=== PATIENT | female | born 1975 | race Caucasian/White ===

== ENCOUNTER 2016-05-25 10:08 | Emergency (ER) | payer MEDICAID, OTHER ==
[2016-05-25] MEDS ORDERED: HYDROmorphone* 1 MG/ML 1 ML SYR IV ONE ×2 (10:30→14:05)
[2016-05-25] MEDS ORDERED: Ketorolac INJ* 30 MG/ML 1 ML VIAL IV ONE (10:30)
[2016-05-25] MEDS ORDERED: Ondansetron INJ* 2 MG/ML VIAL IV ONE (10:30)
[2016-05-25 11:03] LABS: Hematocrit 41 % (35-47); Hemoglobin 13.8 g/dl (12.0-16.0); Mean Corpuscular HGB Conc 34 g/dl (31-36); Mean Corpuscular Hemoglobin 29 pg (27-31); Mean Corpuscular Volume 87 fL (80-97); Mean Platelet Volume 8 um3 (7.4-10.4); Red Cell Distribution Width 15 % (10.5-15); White Blood Count 8.7 10^3/ul (3.5-10.8)
[2016-05-25 11:08] LABS: Add Diff/Slide Review? Slide Review Added; Comments Flag Yes
[2016-05-25 11:08] LABS: Urine Bacteria Absent (Absent); Urine Bilirubin Negative (Negative); Urine Glucose Negative (Negative); Urine Nitrite Negative (Negative)
[2016-05-25 11:17] LABS: ALT 33 U/L (7-52); AST 19 U/L (13-39); Albumin 4.4 g/dL (3.2-5.2); Alkaline Phosphatase 84 U/L (34-104); Anion Gap 11 mmol/L (2-11); BUN/Creatinine Ratio 18.7 (8-20); Blood Urea Nitrogen 14 mg/dL (6-24); CO2 Carbon Dioxide 23 mmol/L (22-32); Calcium 9.4 mg/dL (8.6-10.3); Chloride 104 mmol/L (101-111); EGFR African American 111.2 (>60); EGFR Non-African American 86.5 (>60); Globulin 2.9 g/dL (2-4); Glucose 107 mg/dL (70-100); Lipase 12 U/L (11.0-82.0); Potassium 3.2 mmol/L (3.5-5.0); Sodium 138 mmol/L (133-145); Total Protein 7.3 g/dL (6.4-8.9)
[2016-05-25] MEDS: NS 0.9% 1000 ML* 2,000 ML IV ONE (11:46)
--- NOTE | 2016-05-25 11:51 | RAD ---
CLINICAL HISTORY: Right flank pain, history of kidney stones COMPARISON: October 02, 2014 TECHNIQUE: Multiple contiguous axial CT scans were obtained of the abdomen and pelvis, without intravenous contrast enhancement. Coronal and sagittal multiplanar reformations are submitted for review. Oral contrast was not administered. FINDINGS: The study is limited by the lack of intravenous contrast. This limits evaluation of the solid organs and vasculature. LUNG BASES: The lung bases are clear. LIVER: The liver is normal in shape, size, contour, and attenuation. BILE DUCTS: There is no intrahepatic or extrahepatic biliary dilatation. GALLBLADDER: The gallbladder is not visualized. Surgical clips are noted in the gallbladder fossa. PANCREAS: The pancreas is normal, without mass or ductal dilatation. SPLEEN: Normal in size and appearance. UPPER GI TRACT: Evaluation of the gastrointestinal tract is limited by incomplete gastric distention. There is post surgical change to the upper GI tract. SMALL BOWEL AND MESENTERY: The small bowel is normal in contour, course, and caliber. There is no obstruction or dilatation. COLON: The colon is normal in contour, course, caliber. There is no pericolonic inflammatory change. ADRENALS: Normal bilaterally. KIDNEYS: There are multiple renal calyceal stones on the right measuring up to 0.4 cm. There is hydroureter on the right with a 0.3 cm right UVJ stone. There is mild pelvocaliectasis. BLADDER: As noted above, there is a 0.3 cm right UVJ stone. PELVIC ORGANS: The uterus and adnexa are grossly normal for technique. AORTA: The aorta is normal. IVC: Unremarkable LYMPH NODES: There is no lymphadenopathy by size criteria. ABDOMINAL WALL: The hernia repair mesh is noted. BONES AND SOFT TISSUES: There are mild diffuse degenerative changes. OTHER: None IMPRESSION: RIGHT-SIDED NEPHROLITHIASIS INCLUDING A 0.3 CM RIGHT UVJ STONE WITH MILD HYDRONEPHROSIS.
[2016-05-25] MEDS ORDERED: Tamsulosin CAP* 0.4 MG PO ONE (14:05)
--- NOTE | 2016-05-25 14:11 | ED ---
Gilbert Pichardo Anna, scribed for Sherman Bee MD on 05/25/16 at 1051 . Abdominal Pain/Female - HPI Summary HPI Summary: Patient is a 40 y/o female coming to [facility] presenting with the sudden onset of worsening, intermittent right flank pain that began three days ago. The pain extends into her right groin. She has been unable to produce much urine. She has additionally experienced numbness and tingling in her face. She had nausea, diarrhea, and emesis. She has a history of kidney stones, but she has not experienced accompanying numbness before. She had gastric bypass surgery one year ago. She also had an umbilical hernia removed and a cholecystectomy. She sees Dr. Lott for her kidney stones and had two previous kidney stents. LNMP was two days ago. She denies a chance of . - History of Current Complaint Chief Complaint: EDFlankPain Stated Complaint: RIGHT FLANK PAIN Time Seen by Provider: 05/25/16 10:27 Hx Obtained From: Patient Hx Last Menstrual Period: 01/07/15 ?: No Pain Intensity: 9 Allergies/Adverse Reactions: Allergies Allergy/AdvReac Type Severity Reaction Status Date / Time Levofloxacin [From Levaquin] Allergy Hives Verified 07/17/15 07:10 Metronidazole [From Flagyl] Allergy Hives Verified 07/17/15 07:10 Topiramate [From Topamax] Allergy Numbness Verified 07/17/15 07:10 PMH/Surg Hx/FS Hx/Imm Hx Endocrine/Hematology History: Reports: Hx Thyroid Disease - PARA THYROIDECTOMY UPPER LEFT 2008 Denies: Hx Anticoagulant Therapy, Hx Diabetes Cardiovascular History: Denies: Hx Hypertension, Hx Pacemaker/ICD Respiratory History: Denies: Hx Asthma, Hx Chronic Obstructive Pulmonary Disease (COPD) History: Reports: Hx Kidney Stones - HX Comment Only: Hx Renal Disease - kidney stones, Other Problems/Disorders - Hx OF HYRONEPHROSIS R/T KIDNEY STONE Sensory History: Reports: Hx Contacts or Glasses - GLASSES Denies: Hx Hearing Aid Opthamlomology History: Reports: Hx Contacts or Glasses - GLASSES Neurological History: Reports: Hx Migraine - RARE Denies: Hx Dementia, Hx Seizures Psychiatric History: Reports: Hx Depression Denies: Hx Substance Abuse - Surgical History Surgery Procedure, Year, and Place: 2006 GALLBLADDER [facility] [place] 2010 LEFT KNEE A/C RECONSTRUCTION [facility] [place] 2010 KIDNEY STONE/STENT [facility] [place] 01[place]2013 KIDNEY STONE/STENT [facility]. 02/2013 [facility] 2008 PARATHYROIDECTOMY UPPER LEFT [facility] [place] PLANTER WART RIGHT FOOT [facility] [place] 2015 HERNIA REPAIR W/ MESH Hx Anesthesia Reactions: No Infectious Disease History: Denies: Hx Hepatitis, Hx Human Immunodeficiency Virus (HIV), History Other Infectious Disease, Traveled Outside the [place] in Last 30 Days - Family History Known Family History: Positive: Cardiac Disease, Hypertension, Diabetes, Other - Thyroid disease - Social History Lives: With Family Alcohol Use: None Substance Use Type: Reports: None Smoking Status (MU): Never Smoked Tobacco Type: Cigarettes Have You Smoked in the Last Year: No Review of Systems Positive: Abdominal Pain Positive: see HPI, flank pain All Other Systems Reviewed And Are Negative: Yes Physical Exam Triage Information Reviewed: Yes Vital Signs On Initial Exam: Initial Vitals Temp Pulse Resp BP Pulse Ox 97.1 F 63 16 152/93 100 05/25/16 10:10 05/25/16 10:10 05/25/16 10:10 05/25/16 10:10 05/25/16 10:10 Vital Signs Reviewed: Yes Appearance: Positive: Well-Appearing, Pain Distress - moderate to severe Skin: Positive: Warm, Skin Color Reflects Adequate Perfusion, Dry Head/Face: Positive: Normal Head/Face Inspection Eyes: Positive: EOMI, ANA ENT: Positive: Normal ENT inspection Neck: Positive: Supple, Nontender Respiratory/Lung Sounds: Positive: Clear to Auscultation, Breath Sounds Present Cardiovascular: Positive: RRR Abdomen Description: Positive: Soft, Other: - Tender right side and right flank Bowel Sounds: Positive: Hypoactive Musculoskeletal: Positive: Normal, Strength/ROM Intact Neurological: Positive: Normal, Sensory/Motor Intact, Alert, Oriented to Person Place, Time Psychiatric: Positive: Affect/Mood Appropriate Diagnostics - Vital Signs Vital Signs Temp Pulse Resp BP Pulse Ox 05/25/16 10:10 97.1 F 63 16 152/93 100 - Laboratory Lab Results: Lab Results 05/25/16 05/25/16 05/25/16 Range/Units 10:45 10:55 10:55 WBC 8.7 (3.5-10.8) 10^3/ul RBC 4.70 (4.0-5.4) 10^6/ul Hgb 13.8 (12.0-16.0) g/dl Hct 41 (35-47) % MCV 87 (80-97) fL MCH 29 (27-31) pg MCHC 34 (31-36) g/dl RDW 15 (10.5-15) % Plt Count 260 (150-450) 10^3/ul MPV 8 (7.4-10.4) um3 Neut % (Auto) 84.4 H (38-83) % Lymph % (Auto) 11.1 L (25-47) % [place] % (Auto) 2.3 (1-9) % Eos % (Auto) 0.8 (0-6) % Baso % (Auto) 1.4 (0-2) % Absolute Neuts (auto) 7.4 (1.5-7.7) 10^3/ul Absolute Lymphs (auto) 1.0 (1.0-4.8) 10^3/ul Absolute Monos (auto) 0.2 (0-0.8) 10^3/ul Absolute Eos (auto) 0.1 (0-0.6) 10^3/ul Absolute Basos (auto) 0.1 (0-0.2) 10^3/ul Absolute Nucleated RBC 0 10^3/ul Nucleated RBC % 0 Sodium 138 (133-145) mmol/L Potassium 3.2 L (3.5-5.0) mmol/L Chloride 104 (101-111) mmol/L Carbon Dioxide 23 (22-32) mmol/L Anion Gap 11 (2-11) mmol/L BUN 14 (6-24) mg/dL Creatinine 0.75 (0.51-0.95) mg/dL Est GFR ( Amer) 111.2 (>60) Est GFR (Non-Af Amer) 86.5 (>60) BUN/Creatinine Ratio 18.7 (8-20) Glucose 107 H (70-100) mg/dL Lactic Acid (0.5-2.0) mmol/L Calcium 9.4 (8.6-10.3) mg/dL Total Bilirubin 0.30 (0.2-1.0) mg/dL AST 19 (13-39) U/L ALT 33 (7-52) U/L Alkaline Phosphatase 84 (34-104) U/L C-Reactive Protein 1.20 (< 5.00) mg/L Total Protein 7.3 (6.4-8.9) g/dL Albumin 4.4 (3.2-5.2) g/dL Globulin 2.9 (2-4) g/dL Albumin/Globulin Ratio 1.5 (1-3) Lipase 12 (11.0-82.0) U/L Beta HCG, Quant < 0.60 mIU/mL Urine Color Yellow Urine Appearance Cloudy Urine pH 5.0 (5-9) Ur Specific [place] 1.023 (1.010-1.030) Urine Protein Negative (Negative) Urine Ketones Trace H (Negative) Urine Blood 3+ H (Negative) Urine Nitrate Negative (Negative) Urine Bilirubin Negative (Negative) Urine Urobilinogen Negative (Negative) Ur Leukocyte Esterase Negative (Negative) Urine WBC (Auto) Absent (Absent) Urine RBC (Auto) 3+(>10/hpf) H (Absent) Ur Squamous Epith Cells Present H (Absent) Urine Bacteria Absent (Absent) Urine Glucose Negative (Negative) 05/25/16 Range/Units 10:55 WBC (3.5-10.8) 10^3/ul RBC (4.0-5.4) 10^6/ul Hgb (12.0-16.0) g/dl Hct (35-47) % MCV (80-97) fL MCH (27-31) pg MCHC (31-36) g/dl RDW (10.5-15) % Plt Count (150-450) 10^3/ul MPV (7.4-10.4) um3 Neut % (Auto) (38-83) % Lymph % (Auto) (25-47) % [place] % (Auto) (1-9) % Eos % (Auto) (0-6) % Baso % (Auto) (0-2) % Absolute Neuts (auto) (1.5-7.7) 10^3/ul Absolute Lymphs (auto) (1.0-4.8) 10^3/ul Absolute Monos (auto) (0-0.8) 10^3/ul Absolute Eos (auto) (0-0.6) 10^3/ul Absolute Basos (auto) (0-0.2) 10^3/ul Absolute Nucleated RBC 10^3/ul Nucleated RBC % Sodium (133-145) mmol/L Potassium (3.5-5.0) mmol/L Chloride (101-111) mmol/L Carbon Dioxide (22-32) mmol/L Anion Gap (2-11) mmol/L BUN (6-24) mg/dL Creatinine (0.51-0.95) mg/dL Est GFR ( Amer) (>60) Est GFR (Non-Af Amer) (>60) BUN/Creatinine Ratio (8-20) Glucose (70-100) mg/dL Lactic Acid 2.2 H* (0.5-2.0) mmol/L Calcium (8.6-10.3) mg/dL Total Bilirubin (0.2-1.0) mg/dL AST (13-39) U/L ALT (7-52) U/L Alkaline Phosphatase (34-104) U/L C-Reactive Protein (< 5.00) mg/L Total Protein (6.4-8.9) g/dL Albumin (3.2-5.2) g/dL Globulin (2-4) g/dL Albumin/Globulin Ratio (1-3) Lipase (11.0-82.0) U/L Beta HCG, Quant mIU/mL Urine Color Urine Appearance Urine pH (5-9) Ur Specific [place] (1.010-1.030) Urine Protein (Negative) Urine Ketones (Negative) Urine Blood (Negative) Urine Nitrate (Negative) Urine Bilirubin (Negative) Urine Urobilinogen (Negative) Ur Leukocyte Esterase (Negative) Urine WBC (Auto) (Absent) Urine RBC (Auto) (Absent) Ur Squamous Epith Cells (Absent) Urine Bacteria (Absent) Urine Glucose (Negative) Result Diagrams: 05/25/16 10:55 05/25/16 10:55 Lab Statement: Any lab studies that have been ordered have been reviewed, and results considered in the medical decision making process. - CT CT abd/pel CT Interpretation: Positive (See Comments) CT Interpretation Completed By: Radiologist - IMPRESSION: RIGHT-SIDED NEPHROLITHIASIS INCLUDING A 0.3 CM RIGHT UVJ STONE WITH MILD HYDRONEPHROSIS. Re-Evaluation - Re-Evaluation First Eval Re-Evaluation Time: 14:01 Comment: Discussed results and plan of care with patient and family. Patient and family are agreeable with plan. Abdominal Pain Fem Course/Dx - Course Course Of Treatment: PAIN IMPROVED IN ED. DISCUSSED RESULTS WITH PATIENT. DISCHARGE HOME STABLE. NO CRITICAL CARE TIME. - Diagnoses Provider Diagnoses: Right kidney stone Discharge - Discharge Plan Condition: Stable Disposition: HOME Prescriptions: Tamsulosin CAP* [Flomax CAP*] 0.4 mg PO DAILY #5 cap oxyCODONE/Acetamin 5/325 MG* [Percocet 5/325 TAB*] 1 tab PO Q4H PRN #20 tab MDD 4 PRN Reason: Pain Patient Education Materials: Kidney Stones (ED) Referrals: Washington Pickard MD [Primary Care Provider] - Sotero Lott MD [Medical Doctor] - Additional Instructions: FOLLOW UP WITH UROLOGY, DR LOTT, TOMORROW, 05/26/16. RETURN TO THE EMERGENCY DEPARTMENT FOR ANY WORSENING OF YOUR CONDITION; PAIN, FEVER, SIGNS OF INFECTION, YOU FEEL ILL, VOMITING OR QUESTIONS OR CONCERNS. The documentation as recorded by the Gilbert fuentes Anna accurately reflects the service I personally performed and the decisions made by me, Sherman Bee MD.
[2016-05-25 15:29] VITALS: BP 112/78
== END 2016-05-25 15:28 | disposition home or self-care (01) ==
LOC: ED 10:08
DX: N13.2 Hydronephrosis with renal and ureteral calculous obstruction (principal); Z87.442 Personal history of urinary calculi
CPT/HCPCS: 36415; 74176; 80053; 81003; 81015; 83605; 83690; 84702; 85025; 86140; 96360; 96374; 96375; 96376; 99283; J1170; J1885; J2405

== ENCOUNTER 2022-02-11 01:24 | Observation (INO) ==
[2022-02-11] MEDS ORDERED: Ondansetron 4 mg VIAL 2 MG/ML 2 ml VIAL IV ONE ×2 (01:53→07:15)
[2022-02-11] MEDS ORDERED: Lactated Ringers 1000 ml BAG 1,000 ML IV ONE (01:53)
[2022-02-11 02:21] LABS: ABS Eosinophils 0.1 10^3/ul (0-0.6); ABS Lymphocytes 1.2 10^3/ul (1.0-4.8); ABS Monocytes 0.4 10^3/ul (0-0.8); ABS Neutrophils 8.9 10^3/ul (1.5-7.7); Eosinophil % 0.8 %; Hematocrit 38 % (35-47); Hemoglobin 12.3 g/dL (12.0-16.0); Lymphocyte % 11.5 %; Mean Corpuscular HGB Conc 33 g/dL (31-36); Mean Corpuscular Hemoglobin 28 pg (27-31); Mean Corpuscular Volume 87 fL (80-97); Mean Platelet Volume 7.6 fL (7.4-10.4); Platelet Count 276 10^3/uL (150-450); Red Blood Count 4.36 10^6 /uL (3.70-4.87); Red Cell Distribution Width 15 % (10-15); White Blood Count 10.7 10^3/uL (3.5-10.8)
[2022-02-11 02:37] LABS: Albumin 4.2 g/dL (3.2-5.2); Anion Gap 11 mmol/L (2-11); CO2 Carbon Dioxide 22 mmol/L (22-32); Calcium 9.2 mg/dL (8.6-10.3); Chloride 106 mmol/L (101-111); Potassium 3.6 mmol/L (3.5-5.0); Sodium 139 mmol/L (135-145)
[2022-02-11] MEDS ORDERED: HYDROmorphone 0.5 MG/0.5 ML SYRINGE IV ONE ×2 (02:37→07:10)
[2022-02-11 02:42] LABS: ALT 20 U/L (7-52); AST 21 U/L (13-39); Albumin/Globulin Ratio 1.8 (1-3); Alkaline Phosphatase 66 U/L (35-149); Blood Urea Nitrogen 24 mg/dL (6-24); Globulin 2.4 g/dL (2-4); Glucose 127 mg/dL (70-100); Total Protein 6.6 g/dL (6.4-8.9); eGFR CKD-EPI 93.1 (>60)
[2022-02-11] MEDS ORDERED: HYDROmorphone 1 MG/1 ML SYRINGE IV ONE (04:38)
[2022-02-11 04:51] LABS: Urine Appearance Clear; Urine Bilirubin Negative (Negative); Urine Blood 2+ (Negative); Urine Color Yellow; Urine Glucose Negative (Negative); Urine Ketones 1+ (Negative); Urine Nitrite Negative (Negative); Urine Protein Negative (Negative); Urine Specific Gravity 1.031 (1.002-1.030); Urine Urobilinogen Negative (Negative)
[2022-02-11 04:52] LABS: Urine Bacteria Absent (Absent); Urine Red Blood Cell 2+(6-10/hpf) (Absent); Urine Squamous Epithelial Cell Present (Absent); Urine White Blood Cell Trace(0-5/hpf) (Absent)
[2022-02-11] MEDS ORDERED: cefTRIAXone 2 GM ADDV.VIAL 2 GM in NS 0.9% 100 ml BAG 100 ML IV ONE (07:28)
[2022-02-11] MEDS ORDERED: Acetaminophen IV 1 GM/100ML 1,000 MG/100 ML BAG IV PRN (07:55)
[2022-02-11] MEDS ORDERED: cefTRIAXone 2 gm/50 mL D5W 2 GM/50 ML BAG IV ONE (08:00)
[2022-02-11] MEDS ORDERED: Lactated Ringers 1000 ml BAG 1,000 ML IV SCH ×2 (08:00→17:00)
[2022-02-11] MEDS: Ondansetron 4 mg VIAL 2 MG/ML 2 ml VIAL IV PRN ×2 (11:02→16:12)
[2022-02-11] MEDS: HYDROmorphone 1 MG/1 ML SYRINGE IV PRN ×2 (11:02→14:51)
[2022-02-11] MEDS ORDERED: Iohexol 180 (CONTRAST) 10 ML SDV IV ONE (16:04)
[2022-02-11] MEDS ORDERED: Iohexol 180 (CONTRAST) 20 ML SDV IV ONE (16:05)
[2022-02-11] MEDS ORDERED: Famotidine IV 10 MG/ML 2 ml VIAL (20 mg) ONE (16:09)
[2022-02-11] MEDS ORDERED: Ondansetron 4 mg VIAL 2 MG/ML 2 ml VIAL ONE (16:09)
[2022-02-11] MEDS ORDERED: Famotidine IV 10 MG/ML 2 ml VIAL (20 mg) IV ONE (16:10)
[2022-02-11 16:14] LABS: HCG Pregnancy < 0.60 mIU/mL
[2022-02-11] MEDS ORDERED: fentaNYL 250 mcg/5 ml 50 MCG/ML 5 ml VIAL (250 MCG) ONE (16:54)
[2022-02-11] MEDS ORDERED: Midazolam 2 mg/2 ml VIAL 1 mg/ml 2 ml VIAL (2 mg) ONE (16:54)
[2022-02-11] MEDS ORDERED: Propofol 10 MG/ML 20 ML BTL ONE ×2 (16:57→16:58)
[2022-02-11] MEDS ORDERED: Lidocaine 2% PF 5 ML VIAL ONE (16:58)
[2022-02-11] MEDS ORDERED: Rocuronium 50 mg VIAL 10 mg/ml 5 ml VIAL (50 mg) ONE (16:58)
[2022-02-11] MEDS ORDERED: Dexamethasone IV 4 MG/ML VIAL 1 ml VIAL ONE (17:52)
[2022-02-11] MEDS ORDERED: Prochlorperazine 5 mg/ml 2 ml VIAL (10 mg) IV PRN (17:54)
[2022-02-11] MEDS ORDERED: fentaNYL 100 mcg/2 ml 50 MCG/ML VIAL IV PRN (17:54)
[2022-02-11] MEDS ORDERED: Naloxone 0.4 mg VIAL 0.4 mg/ml 1 ml VIAL IV PRN (17:54)
[2022-02-11] MEDS ORDERED: Glycopyrrolate IV 0.2 MG/ML 1 ML VIAL ONE (18:24)
[2022-02-11 18:51] VITALS: BP 151/97
== END 2022-02-11 19:51 | disposition home or self-care (01) ==
LOC: EDHOLD 01:24 → ED 01:24 → EDHOLD 09:27 → SSU 09:41
PROVIDERS: ADMIT Internal Medicine; ATTEND Internal Medicine